=== PATIENT | male | born 1960 | race Caucasian/White ===

== ENCOUNTER 2023-03-29 19:31 | Emergency (ER) | payer MEDICAID ==
[~2023-03-29] VITALS: Ht 167.6 cm; Wt 94.0 kg
[2023-03-29 19:50] VITALS: BP 177/84; O2SAT 97
[2023-03-29 21:28] VITALS: PULSE 75; RESP 18
== END 2023-03-29 21:29 | disposition home or self-care (01) ==
LOC: ER 19:31
DX: H61.21 Impacted cerumen, right ear (principal); D69.2 Other nonthrombocytopenic purpura; Z98.890 Other specified postprocedural states
CPT/HCPCS: 69210; 99284